=== PATIENT | female | born 1975 | race Two or more races ===

== ENCOUNTER 2020-08-09 05:00 | Day surgery (SDC) | payer OTHER ==
[2020-08-09] MEDS ORDERED: AUG PO (08:28)
[2020-08-09] MEDS ORDERED: ZYRTEC10 M3 PO (08:29)
== END 2020-08-09 18:40 | disposition home or self-care (01) ==
LOC: CIR.AMB 05:00
PROVIDERS: ATTEND Obstetrics & Gynecology
DX: N85.02 Endometrial intraepithelial neoplasia [EIN] (principal); Z20.828 Contact with and (suspected) exposure to other viral communicable diseases; N72 Inflammatory disease of cervix uteri

== ENCOUNTER 2020-09-13 11:45 | Inpatient (IN) | payer OTHER ==
[~2020-09-13] VITALS: Ht 162.6 cm; Wt 113.4 kg
[~2020-09-13 11:45] MED LIST: AUG PO; ZYRTEC10 M3 PO
[2020-09-23] MEDS ORDERED: POLY119PG PO (06:46)
[2020-09-23] MEDS ORDERED: NEURONTIN600 MG PO (06:46)
[2020-09-23] MEDS ORDERED: CODE1TAB37 PO (06:46)
[2020-09-23] MEDS ORDERED: SIMETHICONE125 M1 PO (06:46)
== END 2020-09-23 08:10 | disposition home or self-care (01) | DRG 743 ==
LOC: OB/GYN 09-20 05:00 → O/R 09-20 05:00 → OB/GYN 09-20 07:00
PROVIDERS: ADMIT Obstetrics & Gynecology; ATTEND Obstetrics & Gynecology
PROC: 0UT20ZZ Resection of Bilateral Ovaries, Open Approach (ICD-10-PCS; 2020-09-20)
PROC: 0UT70ZZ Resection of Bilateral Fallopian Tubes, Open Approach (ICD-10-PCS; 2020-09-20)
PROC: 0UT90ZZ Resection of Uterus, Open Approach (ICD-10-PCS; principal; 2020-09-20 07:00)
DX: D25.1 Intramural leiomyoma of uterus (principal); D25.2 Subserosal leiomyoma of uterus; N80.0 Endometriosis of uterus; N84.0 Polyp of corpus uteri; N83.01 Follicular cyst of right ovary; N83.12 Corpus luteum cyst of left ovary